=== PATIENT | female | born 1990 | race Two or more races ===

== ENCOUNTER 2022-04-30 09:04 | Day surgery (SDC) | payer OTHER ==
[~2022-04-30 09:04] MED LIST: LAMICTAL100 M1; PREDNISOLONE ACE5 M1
== END 2022-04-30 14:10 | disposition home or self-care (01) ==
LOC: CIR.AMB 09:04
PROVIDERS: ATTEND Ophthalmology
DX: H35.411 Lattice degeneration of retina, right eye (principal); Z20.822 Contact with and (suspected) exposure to COVID-19; Q02 Microcephaly; H33.011 Retinal detachment with single break, right eye

== ENCOUNTER 2022-07-30 08:42 | Day surgery (SDC) | payer OTHER ==
[~2022-07-30] VITALS: Ht 139.7 cm; Wt 58.5 kg
== END 2022-07-30 14:00 | disposition home or self-care (01) ==
LOC: CIR.AMB 08:42
PROVIDERS: ATTEND Ophthalmology
DX: H33.42 Traction detachment of retina, left eye (principal); H35.411 Lattice degeneration of retina, right eye; Q02 Microcephaly; Z20.822 Contact with and (suspected) exposure to COVID-19

== ENCOUNTER 2022-12-31 11:57 | Day surgery (SDC) | payer OTHER ==
[~2022-12-31] VITALS: Ht 139.7 cm; Wt 59.9 kg
== END 2022-12-31 15:48 | disposition home or self-care (01) ==
LOC: CIR.AMB 11:57
PROVIDERS: ATTEND Ophthalmology
DX: H33.42 Traction detachment of retina, left eye (principal); H35.411 Lattice degeneration of retina, right eye; Z20.822 Contact with and (suspected) exposure to COVID-19; Q02 Microcephaly; Z48.02 Encounter for removal of sutures

== ENCOUNTER 2023-06-17 07:14 | Day surgery (SDC) | payer OTHER | END 2023-06-17 14:00 | disposition home or self-care (01) | LOC: CIR.AMB 07:14 | PROVIDERS: ATTEND Ophthalmology | DX: H33.22 Serous retinal detachment, left eye (principal); H35.411 Lattice degeneration of retina, right eye; H33.42 Traction detachment of retina, left eye; Q02 Microcephaly; Z20.822 Contact with and (suspected) exposure to COVID-19; Z91.013 Allergy to seafood ==

== ENCOUNTER 2024-04-06 12:25 | Day surgery (SDC) | payer OTHER ==
[~2024-04-06 12:25] MED LIST changes: +CYCLOPENTOLATE HCL 2 ML DROPS OP ONE; +CYCLOPENTOLATE HCL 2 ML DROPS OP SCH; +ERYTHROMYCIN BASE 1 GM TUBE OP ONE; +PHENYLEPHRINE HCL 2.5% 2ML OPHT DROPS OP ONE; +PHENYLEPHRINE HCL 2.5% 2ML OPHT DROPS OP SCH; +PROPARACAINE HCL 15 ML DROPS OP SCH; +TROPICAMIDE 1% OPHT DROPS 15ML OP SCH
== END 2024-04-06 19:00 | disposition home or self-care (01) ==
LOC: CIR.AMB 12:25
PROVIDERS: ATTEND Ophthalmology
DX: H33.42 Traction detachment of retina, left eye (principal); H20.12 Chronic iridocyclitis, left eye; Q02 Microcephaly; Z91.013 Allergy to seafood; H35.9 Unspecified retinal disorder

== ENCOUNTER 2025-01-11 13:03 | Day surgery (SDC) | payer OTHER ==
[~2025-01-11 13:03] MED LIST changes: -CYCLOPENTOLATE HCL 2 ML DROPS OP ONE; -CYCLOPENTOLATE HCL 2 ML DROPS OP SCH; -ERYTHROMYCIN BASE 1 GM TUBE OP ONE; -PHENYLEPHRINE HCL 2.5% 2ML OPHT DROPS OP ONE; -PHENYLEPHRINE HCL 2.5% 2ML OPHT DROPS OP SCH; -PROPARACAINE HCL 15 ML DROPS OP SCH; -TROPICAMIDE 1% OPHT DROPS 15ML OP SCH
[2025-01-11] MEDS ORDERED: ERYTHROMYCIN BASE OPHT 1GM EACH TUBE OP ONE (14:59)
[2025-01-11] MEDS ORDERED: PHENYLEPHRINE HCL 2.5% 2ML OPHT DROPS OP ONE (17:15)
[2025-01-11] MEDS ORDERED: CYCLOPENTOLATE HCL 2 ML DROPS OP ONE (17:15)
== END 2025-01-11 16:10 | disposition home or self-care (01) ==
LOC: CIR.AMB 13:03
PROVIDERS: ATTEND Ophthalmology
DX: H33.42 Traction detachment of retina, left eye (principal); Q02 Microcephaly; H30.92 Unspecified chorioretinal inflammation, left eye; Z91.013 Allergy to seafood; Z88.1 Allergy status to other antibiotic agents

== ENCOUNTER → 2025-05-10 | Day surgery (SDC) | payer OTHER ==
[~2025-05-10] MED LIST changes: +CYCLOPENTOLATE HCL 2 ML DROPS OP SCH; +ERYTHROMYCIN BASE OPHT 1GM EACH TUBE OP ONE; +PHENYLEPHRINE HCL 2.5% 2ML OPHT DROPS OP SCH; +PROPARACAINE HCL 15 ML DROPS OP SCH; +TROPICAMIDE 1% OPHT DROPS 15ML OP SCH
== END | disposition home or self-care (01) ==
LOC: ADM 03-28 10:00 → CIR.AMB 04-05 10:00
PROVIDERS: ATTEND Ophthalmology
DX: H20.12 Chronic iridocyclitis, left eye (principal); H20.022 Recurrent acute iridocyclitis, left eye; H40.022 Open angle with borderline findings, high risk, left eye; H35.9 Unspecified retinal disorder; H43.811 Vitreous degeneration, right eye; Q02 Microcephaly; Z91.013 Allergy to seafood; Z88.8 Allergy status to other drugs, medicaments and biological substances